=== PATIENT | male | born 1960 | race Caucasian/White ===

== ENCOUNTER 2019-11-01 10:57 | Outpatient (RCR) | payer MEDICAID, OTHER, SELFPAY ==
[2019-10-01 11:32] LABS: Basophils Absolute Auto 0.1 K/mm3 (0.0-0.1); Basophils Percent Auto 1.6 % (0.2-1.2); Eosinophils Absolute Auto 0.5 K/mm3 (0-0.3); Hematocrit 32.6 % (42.0-52.0); Hemoglobin 10.1 g/dL (14.0-18.0); Immature Granulocyte Percent A 4.4 % (0-0.5); Lymphocytes Absolute Auto 0.98 K/mm3 (0.9-3.2); Lymphocytes Percent Auto 10.9 % (18.3-44.2); Mean Corpuscular Hemoglobin 30.8 pg (26-34); Mean Corpuscular Volume 99.4 fl (80-100); Mean Platelet Volume 10.7 fl (7.4-10.4); Monocytes Absolute Auto 0.7 K/mm3 (0.1-0.6); Monocytes Percent Auto 7.2 % (2.6-8.5); Neutrophils Absolute Auto 6.3 K/mm3 (1.3-6.7); Neutrophils Percent Auto 69.9 % (45.5-73.1); Platelet Count Result 240 k/mm3 (150-375); Red Blood Count 3.28 M/mm3 (4.6-6.20); Red Cell Distribution Width 19.9 % (11.5-14.5)
[2019-10-09 12:42] LABS: Basophils Absolute Auto 0.1 K/mm3 (0.0-0.1); Basophils Percent Auto 0.7 % (0.2-1.2); Eosinophils Percent Auto 15.2 % (0-4.4); Hematocrit 32.9 % (42.0-52.0); Hemoglobin 10.2 g/dL (14.0-18.0); Immature Granulocyte Absolute 0.07 K/mm3 (0.00-0.031); Lymphocytes Absolute Auto 0.84 K/mm3 (0.9-3.2); Lymphocytes Percent Auto 12.4 % (18.3-44.2); Mean Corpuscular Hemoglobin 30.7 pg (26-34); Mean Corpuscular Volume 99.1 fl (80-100); Mean Platelet Volume 10.1 fl (7.4-10.4); Monocytes Absolute Auto 0.4 K/mm3 (0.1-0.6); Monocytes Percent Auto 5.7 % (2.6-8.5); Neutrophils Absolute Auto 4.4 K/mm3 (1.3-6.7); Platelet Count Result 168 k/mm3 (150-375); Red Blood Count 3.32 M/mm3 (4.6-6.20); Red Cell Distribution Width 19.1 % (11.5-14.5); White Blood Count 6.8 K/mm3 (4.5-10.0)
[2019-10-24 13:29] LABS: Basophils Percent Auto 0.4 % (0.2-1.2); Eosinophils Absolute Auto 0.5 K/mm3 (0-0.3); Eosinophils Percent Auto 9.3 % (0-4.4); Hematocrit 34.2 % (42.0-52.0); Hemoglobin 10.8 g/dL (14.0-18.0); Immature Granulocyte Absolute 0.02 K/mm3 (0.00-0.031); Immature Granulocyte Percent A 0.4 % (0-0.5); Lymphocytes Absolute Auto 0.76 K/mm3 (0.9-3.2); Lymphocytes Percent Auto 13.8 % (18.3-44.2); Mean Corpuscular HGB Conc 31.6 g/dl (32-36); Mean Corpuscular Hemoglobin 31.8 pg (26-34); Mean Corpuscular Volume 100.6 fl (80-100); Mean Platelet Volume 10.2 fl (7.4-10.4); Monocytes Absolute Auto 0.4 K/mm3 (0.1-0.6); Monocytes Percent Auto 6.9 % (2.6-8.5); Neutrophils Absolute Auto 3.8 K/mm3 (1.3-6.7); Neutrophils Percent Auto 69.2 % (45.5-73.1); Platelet Count Result 124 k/mm3 (150-375); Red Cell Distribution Width 17.7 % (11.5-14.5); White Blood Count 5.5 K/mm3 (4.5-10.0)
[2019-11-01 11:38] LABS: Basophils Percent Auto 0.5 % (0.2-1.2); Eosinophils Absolute Auto 0.2 K/mm3 (0-0.3); Eosinophils Percent Auto 5.6 % (0-4.4); Hematocrit 34.1 % (42.0-52.0); Hemoglobin 10.7 g/dL (14.0-18.0); Immature Granulocyte Absolute 0.01 K/mm3 (0.00-0.031); Immature Granulocyte Percent A 0.2 % (0-0.5); Lymphocytes Absolute Auto 0.63 K/mm3 (0.9-3.2); Lymphocytes Percent Auto 14.7 % (18.3-44.2); Mean Corpuscular HGB Conc 31.4 g/dl (32-36); Mean Corpuscular Hemoglobin 32.3 pg (26-34); Mean Platelet Volume 10.2 fl (7.4-10.4); Monocytes Absolute Auto 0.3 K/mm3 (0.1-0.6); Neutrophils Absolute Auto 3.1 K/mm3 (1.3-6.7); Platelet Count Result 144 k/mm3 (150-375); Red Blood Count 3.31 M/mm3 (4.6-6.20); Red Cell Distribution Width 16.6 % (11.5-14.5); White Blood Count 4.3 K/mm3 (4.5-10.0)
== END 2019-12-30 23:59 | disposition home or self-care (01) ==
LOC: ANHLAB 10:57
PROVIDERS: PCP Family Medicine; Visit Provider Internal Medicine Medical Oncology
DX: C34.90 Malignant neoplasm of unspecified part of unspecified bronchus or lung (principal)
CPT/HCPCS: 36415; 85025

== ENCOUNTER 2020-01-18 09:35 | Outpatient (CLI) | payer OTHER, SELFPAY ==
--- NOTE | ~2020-01-18 | CT_ITS ---
EXAMINATION: CT chest abdomen w con DATE: 01/18/2020 17:42 NEUROLOGIST INDICATION: Small cell carcinoma TECHNIQUE: Computed tomography (CT) of the chest and abdomen was performed with 100 cc Omnipaque 350 intravenous contrast. The dose-length product was 962.14 mGy-cm. Automated exposure control and itera tive reconstruction technique were employed. COMPARISON: CT dated 11/02/2019 FINDINGS: CHEST CT: Interval development of extensive groundglass opacities with areas of tree-in-bud interstitial patter n throughout both lungs there is more focal consolidation in the right lower lobe. No pneumothorax. T here is minimal persistent scarring in the right upper lobe in the area of previously identified mass . Stable superior mediastinal lymph node measuring 1.9 x 1.7 cm. Stable right paratracheal lymph node measuring 10 mm short axis. There has been enlargement of a right hilar lymph node, image 57 measuri ng, 10 mm short axis compared with 5.6 mm on prior examination. There is extensive atherosclerosis of the aorta. No significant pleural or pericardial effusion. Heart size is normal. There is emphysema. No endobronchial lesions. ABDOMEN CT: Stable liver masses. The spleen, pancreas, right adrenal gland are unremarkable. There are bilateral renal cysts. There is stable nodular left adrenal thickening, likely benign. There is a 4 cm subcutan eous cystic mass, likely a sebaceous cyst, left posterior abdominal wall. Small ventral hernia contai carson fat. Gallbladder is present. Stable portacaval lymph node measuring 3.7 x 1.3 cm. The duodenal d iverticulum. Extensive atherosclerosis. Clonic diverticulosis. No osteolytic or osteoblastic lesions. IMPRESSION: 1. Interval progression of extensive patchy groundglass opacification throughout both lungs with area s of tree-in-bud interstitial pattern. Right lower lobe consolidation is stable. These findings are m ost likely infectious/inflammatory although metastatic disease not excluded. 2: Minimal persistent scarring right upper lobe in the area of primary malignancy. 3: Slight increased size of right hilar lymph node compared with prior study. Additional mediastinal and hilar lymph nodes are stable. 4: Stable liver masses compared with most recent comparison. Reviewed, dictated and finalized at location A. OLOGIST IMPRESSION: 1. Interval progression of extensive patchy groundglass opacification throughou t both lungs with areas of tree-in-bud interstitial pattern. Right lower lobe c onsolidation is stable. These findings are most likely infectious/inflammatory although metastatic disease not excluded. 2: Minimal persistent scarring right upper lobe in the area of primary malignan cy. 3: Slight increased size of right hilar lymph node compared with prior study. A dditional mediastinal and hilar lymph nodes are stable. 4: Stable liver masses compared with most recent comparison.
[2020-01-18 10:24] LABS: Blood Urea Nitrogen 18 mg/dL (8-26); Estimated Glomerular Filt Rate 52
== END 2020-01-18 09:36 | disposition home or self-care (01) ==
PROVIDERS: PCP Family Medicine; Visit Provider Internal Medicine Medical Oncology
DX: C80.1 Malignant (primary) neoplasm, unspecified (principal); J43.9 Emphysema, unspecified; R16.0 Hepatomegaly, not elsewhere classified; R59.9 Enlarged lymph nodes, unspecified; J98.4 Other disorders of lung
CPT/HCPCS: 71260; 74160; Q9967

== ENCOUNTER 2020-01-23 10:15 | Outpatient (CLI) | payer OTHER, SELFPAY ==
--- NOTE | ~2020-01-23 | CT_ITS ---
EXAMINATION: CT brain wo/w con EXAM DATE: 01/23/2020 11:02 INDICATION: Small cell lung cancer. TECHNIQUE: Spiral CT of the head was performed without contrast. Axial, coronal and sagittal images were reviewed. Patient was then injected with 100 cc Omnipaque 350 intravenous contrast and reimaged. Postcontrast axial, coronal, sagittal reformatted images reviewed. The dose-length product (DLP) fo r this examination was 1210.67 mGy-cm. The exposure was tailored according to patient size, and iter ative reconstruction (ASIR) was used as additional dose reduction technique. There is no prior study for comparison. FINDINGS: There is no acute intraparenchymal hemorrhage. No evidence of intraparenchymal brain mass lesion. No evidence of acute infarction. There is no mass effect or midline shift. The ventricles are normal in size. There are no extra-axial collections. There are no acute calvarial fractures. T he orbits are unremarkable. Soft tissue is unremarkable. Mild bilateral ethmoid mucoperiosteal thic kening. There are no areas of abnormal enhancement on the postcontrast images. IMPRESSION: 1. No evidence of intracranial metastatic disease. Reviewed, dictated and finalized at location B. ECT PORTFOLIO ANALYST
== END 2020-01-23 10:16 | disposition home or self-care (01) ==
PROVIDERS: PCP Family Medicine; Visit Provider Internal Medicine Medical Oncology
DX: C80.1 Malignant (primary) neoplasm, unspecified (principal)
CPT/HCPCS: 70470; Q9967